=== PATIENT | male | born 1990 | race Caucasian/White ===

== ENCOUNTER → 2021-06-19 13:50 | Outpatient (CLI) | payer MEDICAID, SELFPAY ==
--- NOTE | 2021-06-19 13:54 | XR_ITS ---
PROCEDURE: XR SHOULDER RT MIN 2V CLINICAL INDICATION: right shoulder pain COMPARISON: No exams were available for comparison FINDINGS: No fracture or dislocation. No lytic or blastic change. There is normal mineralization. The joint spaces are well-preserved. No significant degenerative/arthritic changes. No erosive changes evident. Other findings:None. IMPRESSION: No acute findings. Dictated by: Ismael Oh MD 06/19/2021 16:26 Ismael Oh MD in [place] 06/19/2021 16:26
== END ==
PROVIDERS: PCP Family Medicine; Visit Provider Family Medicine
DX: M25.511 Pain in right shoulder (principal)
CPT/HCPCS: 73030

== ENCOUNTER 2021-06-26 07:51 | Outpatient (RCR) | payer MEDICAID, SELFPAY ==
--- NOTE | 2021-06-26 08:39 | HMH.OTOPEV ---
OT Inpatient Evaluation Rehab OT Outpatient Eval Start: 06/26/21 08:26 Freq: Status: Active Protocol: Document 06/26/21 08:26 RMMELVIN (Rec: 06/26/21 08:39 [id number] Electronically Signed By Idalia Bradshaw OT 06/26/21 08:26 Outpatient Therapy Subjective History Subjective History Pt is a 31 year old male who reports to therapy for initial evaluation to right shoulder. Pt initially injured his shoulder while working ~1 month ago. 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 He had his arms overhead cleaning when he felt a pop and tingling sensation down his right arm. Pt reports since this accident he has had pain and limited use of right shoulder. Pt is right hand dominant. Pt explains ~2 weeks ago he was throwing a bag of trash into a dumpster when he felt a second pop with pain following. Pt did seek medical attention and has seen PCP and ortho. Pt reports his pain has improved significantly since completing a steroid pack. He no longer has constant pain, but only pain while moving arm above head. Pt is now on light duty at work as well. Pt does demosntrate with decreased strength and AROM at right shoulder upon evaluation. Pt will continue to be seen twice a week in order to address deficits of AROM and strength at right shoulder. Chief Complaint Pain Symptom Type Ache,Throb,Sharp,Dull Symptoms Relieved By Rest/Positioning Symptoms Aggravated By Physical Activity,Lifting Prior Functional Limitations None Current Functional Limitations Lifting,Housework,Sleeping, Recreation Activity Symptom Description Intermittent,Activity Dependent Level of pain today (0-10) 0 Pain scale - at its best (0-10) 0
== END 2021-06-26 07:55 | disposition home or self-care (01) ==
LOC: OT 07:51
PROVIDERS: PCP Family Medicine; Visit Provider Orthopaedic Surgery
DX: M25.511 Pain in right shoulder (principal); S49.91XA Unspecified injury of right shoulder and upper arm, initial encounter; S43.51XA Sprain of right acromioclavicular joint, initial encounter; M75.21 Bicipital tendinitis, right shoulder
CPT/HCPCS: 97010; 97014; 97110; 97166; G0283